=== PATIENT | male | born 1970 | race Hispanic/Latino ===

== ENCOUNTER 2017-09-20 18:56 | Emergency (ER) | payer MEDICARE | END 2017-09-20 20:18 | disposition home or self-care (01) | LOC: EDH 18:56 → EDBD 18:56 → EDH 20:18 | DX: S80.11XA Contusion of right lower leg, initial encounter (principal); F31.9 Bipolar disorder, unspecified; F20.9 Schizophrenia, unspecified; Z72.0 Tobacco use; X58.XXXA Exposure to other specified factors, initial encounter; Y93.89 Activity, other specified; Y92.098 Other place in other non-institutional residence as the place of occurrence of the external cause; Y99.8 Other external cause status | CPT/HCPCS: 93971 ==

== ENCOUNTER 2017-09-26 13:58 | Emergency (ER) | payer MEDICARE | END 2017-09-26 14:25 | disposition home or self-care (01) | LOC: EDH 13:58 | DX: S86.811A Strain of other muscle(s) and tendon(s) at lower leg level, right leg, initial encounter (principal); Z72.0 Tobacco use; X50.0XXA Overexertion from strenuous movement or load, initial encounter; Y93.39 Activity, other involving climbing, rappelling and jumping off; Y92.812 Truck as the place of occurrence of the external cause; Y99.8 Other external cause status | CPT/HCPCS: 99281 ==